=== PATIENT | male | born 1970 | race Caucasian/White ===

== ENCOUNTER 2019-10-15 16:53 | Emergency (ER) | payer OTHER, SELFPAY ==
[2019-10-15 17:01] VITALS: BP 158/90; PULSE 107; RESP 18; TEMP 37.3; O2SAT 98
--- NOTE | 2019-10-15 17:05 | ED.GENADULT ---
HPI - General Adult General Chief complaint: Extremity Problem,Nontraumatic Stated complaint: sore neck Time Seen by Provider: 10/15/19 17:05 Source: patient and RN notes reviewed Mode of arrival: ambulatory Limitations: no limitations History of Present Illness HPI narrative: This is a 48 years old male presents to the office for an evaluation of posterior neck/upper back pain four days ago. Pain abruptly started while he went to bed at night. Pain continues to get worse over time. Pain caused him to have a headache denies any other associated symptoms such as dizziness, lightheaded, visual change, or abdominal pain or vomiting.He tried ice and Tylenol for his symptoms. Denies recent trauma or injury. Denies heavy lifting. Denies insect bite/joints pain. Denies similar pain the past. Denies recent massage or chiropractor care. Related Data Home Medications Medication Instructions Recorded Confirmed atorvastatin 20 mg tablet 20 mg PO DAILY 07/25/19 10/15/19 lisinopril 20 mg tablet 20 mg PO DAILY 07/25/19 10/15/19 Allergies Allergy/AdvReac Type Severity Reaction Status Date / Time No Known Allergies Allergy Unverified 07/02/15 09:33 Review of Systems Review of Systems: Narrative: CONSTITUTIONAL: Denies fever or feeling ill EYES: Denies visual changes ENT: Denies congestion or sore throat CARDIOVASCULAR: Denies chest pain RESPIRATORY: Denies dyspnea,cough GASTROINTESTINAL: Denies abdominal pain, nausea, vomiting SKIN: Denies rash MUSCULOSKELETAL: Reports upper back and neck pain; pain is worse when any movement include moving his head, opening his mouth or lifting up his shirts. NEUROLOGIC: Denies lightheaded All other systems reviewed are negative, except as documented in HPI. [facility] Past Medical History Medical History (Updated 10/15/19 @ 17:23 by TANIA Avila) Abnormal fasting glucose Body mass index (bmi) 33.0-33.9, adult (11/07/18) Chronic anxiety Chronic low back pain with left-sided sciatica Encounter for prostate cancer screening Encounter for wellness examination in adult Essential (primary) hypertension Mixed hyperlipidemia Vitamin B12 deficiency anemia, unspecified Family History Family History Father Patient's father is , Onset Age: 65 Family history of primary malignant neoplasm of liver Social History Social History Smoking status: Light tobacco smoker Alcohol intake: current Comments At time of signature, I agree with nursing past medical, surgical, social and family history. There is no relevant family history pertinent to the presenting complaint. Exam Narrative: Exam Narrative: GENERAL: This is a well-nourished, well-developed patient, in no apparent distress. EYES: EMOI. Sclera clear/white. Vision is grossly intact. THROAT: Mucous membranes moist, posterior pharynx clear. NECK: Neck supple, non-tender without lymphadenopathy, masses or thyromegaly.No surface trauma, open wounds, soft tissue or muscle tenderness or spasm, trachea midline, nontender over larynx. CARDIOVASCULAR: Regular rate and rhythm without murmurs, gallops, or rubs. RESPIRATORY: Clear to auscultation. Breath sounds equal bilaterally. No wheezes, rales, or rhonchi. GASTROINTESTINAL: Abdomen soft, non-tender, nondistended. Bowel sounds are active. No hepato-splenomegaly, or palpable masses. No guarding. SKIN: warm, intact with no suspicious lesions or rash, good texture and turgor. NEURO: awake, alert, and oriented to person, place and time. There were no obvious focal neurologic abnormalities. Steady gait EXTREMITIES: Normal range of motion. BACK:Posterior neck: No bony tenderness, step-off or deformity to firm palpation at the posterior midline. Limited ROM secondary to pain. Trapezius muscle is very tense to palpation. Nontender without deformity or crepitance. No flank tenderness.
[2019-10-15] MEDS: KETOROLAC (*BKC) 60 MG/2 ML VIAL IM (17:22)
== END 2019-10-15 17:38 | disposition home or self-care (01) ==
PROVIDERS: Emergency Provider Nurse Practitioner; PCP Family Medicine
DX: M54.2 Cervicalgia (principal); F17.290 Nicotine dependence, other tobacco product, uncomplicated
CPT/HCPCS: 96372; 99213; G0463; J1885

== ENCOUNTER 2020-05-29 09:45 | Outpatient (RCR) | payer OTHER, SELFPAY ==
--- NOTE | 2020-04-16 09:26 | PTOPEVAL ---
Thank you for referring Silviano Elias to [facility] [place].? The patient is scheduled to be seen for therapy? 1 x/week for 4 weeks. Please review, sign, date and return this plan of care SHAINA. I agree with and certify that the following plan of care is medically necessary. Referring Physician Date Attending Provider: Prakash Luis MD *PT Outpatient Evaluation Start: 04/16/20 08:15 Freq: Status: Active Protocol: Document 04/16/20 08:17 CHELA (Rec: 04/16/20 09:07 CHELA [id number]) Therapy Assessment Status Assessment Status Assessment Status Evaluation Outpatient Past Medical History Past Medical History Source of Past Medical History Patient,Recalled from Previous Visit, Confirmed with Patient /Family Neurological History Hx Neurological Disorders No Significant History Cardiovascular History Hx Hypercholesterolemia Yes Hx Hypertension Yes Respiratory History Hx Respiratory Disorders No Significant History Gastrointestinal History Hx Gastrointestinal Disorders No Significant History Genitourinary History Hx Genitourinary Disorders No Significant History Musculoskeletal History Hx Arthritis Yes: left shoulder Hx Back Pain Yes Hematological History Hx Hematological Disorders No Significant History Endocrine History Hx Diabetes Yes: borderline HEENT History Hx HEENT Disorders No Significant History Psychosocial History Hx Anxiety Yes Evaluation Information Problem Diagnosis shoulder pain Onset Nichelle Cause throwing Additional Evaluation Detail Most of his work duties require sitting. 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 He felt Family pain after the incident. He was seen by the MD on 04/04/20 and received an injection. He has been fishing, playing sports and golf without increased pain or symptoms since the injections. He was initially having problems with reaching behind his back, but has improved since the injections. He sleeps on his stomach on his left arm, but has no pain since the injection. He does a running/walking prog
--- NOTE | 2020-05-20 10:52 | PCPTNOTE ---
Patient called & cancelled scheduled appointment for 05/21/20 due to having to work. Pt will call to reschedule.
--- NOTE | 2020-05-29 10:57 | PCPTNOTE ---
Admitting Provider: Attending Provider: Prakash uLis MD Patient:Silviano Elias Date of :1970 Discharge Note Patient has been seen for 4 therapy visits from 04/16/20 to 05/29/20 with 2 cancelled visits. He demonstrates normal shoulder range and strength without increased pain. No change in scapular stability strength noted. He continues to demonstrate poor scapular position in seated or standing position. He has been instructed in a HEP and demonstrates indep, but is not consistently performing the program at home. Quick Dash: 0% impaired. The goals have been partially met at this time. DC skilled therapy services at this time with pt having reached maximal potential with skilled therapy. Thank you for referring this patient to [facility]. Please review, sign, date and return this discharge summary SHAINA. I have been updated about the patient's current status and I agree with discharge from the above service at this time. Referring Physician Date
== END 2020-05-30 09:29 | disposition home or self-care (01) ==
LOC: ANHPT 09:45
PROVIDERS: PCP Family Medicine; Visit Provider Orthopaedic Surgery
DX: M25.512 Pain in left shoulder (principal); G89.29 Other chronic pain
CPT/HCPCS: 97110; 97112; 97140; 97161

== ENCOUNTER → 2022-01-26 14:49 | Outpatient (CLI) | payer OTHER, SELFPAY ==
--- NOTE | ~2022-01-26 | XR_ITS ---
EXAMINATION: XR lumbar spine min 4V DATE: 01/26/2022 15:07 INDICATION: Lumbago with sciatica, right side. TECHNIQUE: 5 views of lumbar spine were obtained. COMPARISON: None. FINDINGS: There is 7 degrees levocurvature of lumbar spine. There is 3 mm retrolisthesis of L3 on L4 and L4 on L5. Vertebral body heights are normal. There is mildly decreased disc height at L2-L3 and m oderately decreased disc height at L3-L4 and L4-L5, and L5-S1. There is multilevel mild facet joint o steoarthritis. IMPRESSION: 1. Moderate lumbar spondylosis. Reviewed, dictated and finalized at location B.
== END ==
PROVIDERS: PCP Family Medicine; Visit Provider Family Medicine
DX: M54.41 Lumbago with sciatica, right side (principal); G89.29 Other chronic pain; M47.896 Other spondylosis, lumbar region
CPT/HCPCS: 72110

== ENCOUNTER 2022-02-17 10:29 | Outpatient (CLI) | payer OTHER, SELFPAY ==
--- NOTE | 2022-02-17 10:38 | EST_ITS ---
Patient Info Name: Silviano Elias Age: 51 years : 1970 Gender: Male Ht: 65 in Wt: 205 lbs BSA: 2.10 m2 HR: 76 bpm BP: 131 / 75 mmHg Heart Rhythm: Sinus Rhythm Exam Date: 02/17/2022 11:13 AM Exam Location: [facility] Stress Patient Status: Outpatient Admit Date: 02/17/2022 Staff Ordering Physician: Jay Valle MD Attending Provider: Jay Valle MD Exercise Technologist: Mckenna Estevez CT Exercise Physician: Simone Rubio DO Exam Type: CA stress test treadmill Study Info Indications R07.9 - Chest pain, unspecified A treadmill exercise stress test was performed. Summary 1. 1. Negative Bony exercise stress test for ischemic ST changes by ECG criteria. 2. 2. Good functional capacity, achieving 10 METs of workload. 3. 3. Appropriate HR response to exercise. 4. 4. Appropriate HR recovery at 1 minute post exercise. 5. 5. No imaging with stress testing. 6. 6. Patient informed of the above results. Protocol: Bony Stress ECG Details Stage: REST Duration (min): 3 min : 38 sec Speed (mph): 0.0 Grade (%): 0 HR (bpm): 82 SBP (mmHg): 131 DBP (mmHg): 75 METS: --- Stage: REST Duration (min): 11 min : 50 sec Speed (mph): 0.0 Grade (%): 0 HR (bpm): 81 SBP (mmHg): 131 DBP (mmHg): 75 METS: --- Stage: STAGE 1 Duration (min): 1 min : 0 sec Speed (mph): 1.7 Grade (%): 10 HR (bpm): 101 SBP (mmHg): 131 DBP (mmHg): 75 METS: --- Stage: STAGE 1 Duration (min): 2 min : 0 sec Speed (mph): 1.7 Grade (%): 10 HR (bpm): 105 SBP (mmHg): 131 DBP (mmHg): 75 METS: --- Stage: STAGE 1 Duration (min): 3 min : 0 sec Speed (mph): 1.7 Grade (%): 10 HR (bpm): 105 SBP (mmHg): 135 DBP (mmHg): 85 METS: --- Stage: STAGE 2 Duration (min): 1 min : 0 sec Speed (mph): 2.5 Grade (%): 12 HR (bpm): 110 SBP (mmHg): 135 DBP (mmHg): 85 METS: --- Stage: STAGE 2 Duration (min): 2 min : 0 sec Speed (mph): 2.5 Grade (%): 12 HR (bpm): 123 SBP (mmHg): 155 DBP (mmHg): 88 METS: --- Stage: STAGE 2 Duration (min): 3 min : 0 sec Speed (mph): 2.5 Grade (%): 12 HR (bpm): 123 SBP (mmHg): 155 DBP (mmHg): 88 METS: --- Stage: STAGE 3 Duration (min): 1 min : 0 sec Speed (mph): 3.4 Grade (%): 14 HR (bpm): 134 SBP (mmHg): 155 DBP (mmHg): 88 METS: --- Stage: STAGE 3 Duration (min): 2 min : 0 sec Speed (mph): 3.4 Grade (%): 14 HR (bpm): 141 SBP (mmHg): 178 DBP (mmHg): 97 METS: --- Stage: STAGE 3 Duration (min): 3 min : 0 sec Speed (mph): 3.4 Grade (%): 14 HR (bpm): 148 SBP (mmHg): 179 DBP (mmHg): 94 METS: --- Stage: STAGE 4 Duration (min): 0 min : 18 sec Speed (mph): 4.2 Grade (%): 16 HR (bpm): 154 SBP (mmHg): 179 DBP (mmHg): 94 METS: ---
== END 2022-02-17 10:30 | disposition home or self-care (01) ==
LOC: ANHCARD 10:31
PROVIDERS: PCP Family Medicine; Visit Provider Family Medicine
DX: R07.89 Other chest pain (principal); I10 Essential (primary) hypertension; F17.209 Nicotine dependence, unspecified, with unspecified nicotine-induced disorders; E78.2 Mixed hyperlipidemia
CPT/HCPCS: 93017

== ENCOUNTER 2022-03-27 00:43 | Day surgery (SDC) | payer OTHER, SELFPAY ==
[2022-03-11 14:19] VITALS: BMI 31.4
[2022-03-27 09:16] VITALS: BP 128/83; PULSE 90; RESP 18; TEMP 36.4; O2SAT 96
[2022-03-27 09:32] LABS: Glucose Point of Care 95 mg/dl (65-105)
--- NOTE | 2022-03-27 09:45 | WPDANESEPPF ---
Anes - Initial Pre Proc Eval Procedure: Operation Date: 03/27/22 10:30 Proposed Procedures p Screening Colonoscopy - Star Johnson MD Date/Time: 03/27/22 09:45 Surgeon: Star Johnson MD Pre Op Diagnosis: neoplasm screening Patient Data Age: 51 Gender: M Height: 1.7 m Weight: 94.7 kg Last Vital Signs Temp 36.4 C 03/27/22 09:16 Pulse 90 03/27/22 09:16 Resp 18 03/27/22 09:16 BP 128/83 03/27/22 09:16 Pulse Ox 96 03/27/22 09:16 O2 Del Method Room Air 03/27/22 09:16 Allergies Allergy/AdvReac Type Severity Reaction Status Date / Time No Known Allergies Allergy Verified 03/27/22 09:15 Home Medications Medication Instructions Recorded Confirmed Type metformin 500 mg tablet,extended 500 mg PO DAILY #30 tabs 08/25/21 03/11/22 Rx release 24 hr lisinopril 20 mg tablet 20 mg PO DAILY #90 tabs 10/02/21 03/11/22 Rx atorvastatin 20 mg tablet 20 mg PO DAILY #30 tabs 01/02/22 03/11/22 Rx alprazolam 0.25 mg tablet 0.25 mg PO TID PRN anxiety #90 tabs 01/26/22 03/27/22 Rx sodium,potassium,mag sulfates 17.5 See Rx Instructions PO .COMPLEX 02/10/22 Rx gram-3.13 gram-1.6 gram oral soln #354 mL (Suprep Bowel Prep Kit) Laboratory Tests 03/27/22 09:29 POC Capillary Glucose 95 mg/dl mg/dl (65-105) Patient hx anesthesia problems: none Family hx anesthesia problems: none Results Review: All pre-operative results and documents have been reviewed as part of the pre-operative evaluation. [facility] Past Medical History Medical History Abnormal fasting glucose fasting glucose 99 with hemoglobin A1c 5.7 on 06/02/2021 Acute neck pain Atypical chest pain Exercise stress test on 02/17/2022 was negative for ischemia. BMI 31.0-31.9,adult BMI 32.0-32.9,adult Body mass index (bmi) 33.0-33.9, adult (11/07/18) Chronic anxiety Chronic left shoulder pain Chronic low back pain with left-sided sciatica Chronic low back pain with right-sided sciatica X-ray on 01/26/2022 with 7? of levoscoliosis, retrolisthesis 3 mm of L3 on L4 and L4 on L5. Mild degenerative disc disease at L2-L3 with moderate degenerative disc disease at L3-L4, L4-L5, and L5-S1 with neuroforaminal narrowing. Colon cancer screening COVID-19 Encounter for prostate cancer screening PSA normal at 0.8 on 06/02/2021 Encounter for wellness examination in adult Essential (primary) hypertension Hemoglobin A1c less than 7.0% 02/08/2020 A1c = 5.5 Hypersomnia Hypertension Microscopic hematuria Mixed hyperlipidemia cholesterol 166, HDL 31, triglycerides 77, LDL 120 on 06/02/2021 Obesity (BMI 30.0-34.9) Pre-diabetes Tobacco use disorder, continuous Vitamin B12 deficiency anemia B12 normal 499 on 06/02/2021 Vitamin B12 deficiency anemia, unspecified Family History Family History Father Patient's father is , Onset Age: 65 Family history of primary malignant neoplasm of liver Social History Social History Smoking status: Current some day smoker Tobacco type: cigarettes Alcohol intake: current Drinks per week: 12 Alcohol use details: beer Substance use: never Substance use type: does not use Living arrangements: with family 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
--- NOTE | 2022-03-27 09:54 | PM.HPGS ---
History of Present Illness History of Present Illness Consent: Risks, benefits, and alternatives have been discussed and questions answered. Patient agrees to proceed with procedure. Chief complaint: neoplasm screening Narrative: Silviano Elias is a 51 year old male Presents for screening colonoscopy. Patient's current weight appetite and bowel movements are normal. Patient denies abdominal pain. He has had no bleeding. Family history is noncontributory. Review of Systems Review of Systems: Review of systems noncontributory. [facility] Past Medical History Medical History Abnormal fasting glucose fasting glucose 99 with hemoglobin A1c 5.7 on 06/02/2021 Acute neck pain Atypical chest pain Exercise stress test on 02/17/2022 was negative for ischemia. BMI 31.0-31.9,adult BMI 32.0-32.9,adult Body mass index (bmi) 33.0-33.9, adult (11/07/18) Chronic anxiety Chronic left shoulder pain Chronic low back pain with left-sided sciatica Chronic low back pain with right-sided sciatica X-ray on 01/26/2022 with 7? of levoscoliosis, retrolisthesis 3 mm of L3 on L4 and L4 on L5. Mild degenerative disc disease at L2-L3 with moderate degenerative disc disease at L3-L4, L4-L5, and L5-S1 with neuroforaminal narrowing. Colon cancer screening COVID-19 Encounter for prostate cancer screening PSA normal at 0.8 on 06/02/2021 Encounter for wellness examination in adult Essential (primary) hypertension Hemoglobin A1c less than 7.0% 02/08/2020 A1c = 5.5 Hypersomnia Hypertension Microscopic hematuria Mixed hyperlipidemia cholesterol 166, HDL 31, triglycerides 77, LDL 120 on 06/02/2021 Obesity (BMI 30.0-34.9) Pre-diabetes Tobacco use disorder, continuous Vitamin B12 deficiency anemia B12 normal 499 on 06/02/2021 Vitamin B12 deficiency anemia, unspecified Family History Family History Father Patient's father is , Onset Age: 65 Family history of primary malignant neoplasm of liver Social History Social History Smoking status: Current some day smoker Tobacco type: cigarettes Alcohol intake: current Drinks per week: 12 Alcohol use details: beer Substance use: never Substance use type: does not use Living arrangements: with family 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, [employer] Gender identity (if verbalized by the patient): Male Spiritual care concerns: No Meds Home Medications and Allergies Home Medications Medication Instructions Recorded Confirmed Type metformin 500 mg tablet,extended 500 mg PO DAILY #30 tabs 08/25/21 03/11/22 Rx release 24 hr lisinopril 20 mg tablet 20 mg PO DAILY #90 tabs 10/02/21 03/11/22 Rx atorvastatin 20 mg tablet 20 mg PO DAILY #30 tabs 01/02/22 03/11/22 Rx alprazolam 0.25 mg tablet 0.25 mg PO TID PRN anxiety #90 tabs 01/26/22 03/27/22 Rx sodium,potassium,mag sulfates 17.5 See Rx Instructions PO .COMPLEX 02/10/22 Rx gram-3.13 gram-1.6 gram oral soln #354 mL (Suprep Bowel Prep Kit) Allergies Allergy/AdvReac Type Severity Reaction Status Date / Time No Known Allergies Allergy Verified 03/27/22 09:15 Vital Signs Vital Signs - 24 hr 03/27/22 09:16 Temperature 97.6 F Pulse Rate 90 Respiratory Rate 18 Blood Pressure 128/83 Pulse Oximetry 96 Oxygen Delivery Room Air Exam Narrative: Physical exam reveals patient to be alert. Vital signs stable. HEENT exam is unremarkable. Patient is anicteric. Lungs are clear to auscultation and percussion. Heart is without murmur or extra sounds. Abdomen bowel sounds are present soft nontender with no hepatosplenomegaly. Digital external rectal exam is normal. Assessment and Plan Assessment and plan (1) Colon cancer screening: Code(s): Z12.11 - Encounter for screening for malignant neoplasm of colon St
[2022-03-27] MEDS: LACTATED RINGERS 1,000 ML 150 ML IV CONT (10:46)
[2022-03-27 10:49] VITALS: BP 102/63; PULSE 86; RESP 20; O2SAT 95
[2022-03-27 10:59] VITALS: BP 129/91; PULSE 75; RESP 20; O2SAT 98
[2022-03-27 11:09] VITALS: BP 139/98; PULSE 79; RESP 22; O2SAT 99
== END 2022-03-27 11:26 | disposition home or self-care (01) ==
PROVIDERS: PCP Family Medicine; Visit Provider Internal Medicine Gastroenterology
PROC: 0DJD8ZZ Inspection of Lower Intestinal Tract, Via Natural or Artificial Opening Endoscopic (ICD-10-PCS; CPT 45378; principal; 2022-03-27 10:30)
DX: Z12.11 Encounter for screening for malignant neoplasm of colon (principal); D12.2 Benign neoplasm of ascending colon; K63.5 Polyp of colon; K64.8 Other hemorrhoids; I10 Essential (primary) hypertension; F41.9 Anxiety disorder, unspecified; E78.2 Mixed hyperlipidemia; D51.3 Other dietary vitamin B12 deficiency anemia; R73.03 Prediabetes; Z79.84 Long term (current) use of oral hypoglycemic drugs; E66.9 Obesity, unspecified; Z68.32 Body mass index [BMI] 32.0-32.9, adult; F17.210 Nicotine dependence, cigarettes, uncomplicated
CPT/HCPCS: 45385; 82948; 88305; J2704; J7120

== ENCOUNTER → 2024-05-30 13:19 | Outpatient (CLI) | payer OTHER, SELFPAY ==
--- NOTE | ~2024-05-30 | XR_ITS ---
HISTORY: M25.511 - Pain in right shoulder,no injury COMPARISON: None TECHNIQUE: 3 views of the right shoulder were performed FINDINGS: No acute fracture. The glenohumeral joint space is maintained. Degenerative disease is identified within the right acromioclavicular joint space with osteophyte for mation and joint space narrowing. The visualized portion of the adjacent right lung is clear. The humeral head is well seated within the glenoid fossa. IMPRESSION: Degenerative disease, without acute fracture or anterior dislocation. Reviewed, dictated and finalized at location A. DRY CLERK
--- NOTE | ~2024-05-30 | XR_ITS ---
Cervical Spine: AP, lateral, open-mouth views Clinical History: Pain Findings: The normal lordotic curve is maintained. No acute fracture seen. There is grade 1 retrolist hesis of C3 over C4. There is moderate to advanced degenerative disc narrowing at C3-C4, C5-C6, and C 6-C7. There are mild facet joint degenerative changes in the cervical spine. Pre-vertebral soft tissu es are unremarkable. Impression: Moderate to advanced degenerative spondylosis overall, as detailed above. Grade 1 retrolisthesis of C3 over C4. Reviewed, dictated and finalized at location M. RUMENT MAKER Impression: Moderate to advanced degenerative spondylosis overall, as detailed above. Grade 1 retrolisthesis of C3 over C4.
--- OUTSIDE RECORDS SUMMARY | 2024-05-30 13:30 | XMS_ITS | Referral Summary ---
Author Organization [facility] [place] [address] Address [address] [place] [id number] Care Team Providers Care Pest Control Chemical Technician Name Role Phone Jay Valle MD Primary Care Provider [phone] Allergies No known active allergies Medications lisinopriL (PRINIVIL,ZESTR IL) 20 mg tablet Take 20 mg by mouth daily 06/27/2021 Active metFORMIN XR (GLUCOPHAGE XR) 500 mg 24 hr tablet Take 500 mg by mouth daily 05/20/2021 Active atorvastatin (LIPITOR) 20 mg tablet Take 20 mg by mouth daily 06/26/2021 Active ALPRAZolam (XANAX) 0.25 mg tablet TAKE 1 TABLET BY MOUTH THREE TIMES A DAY NEEDED FOR ANXIETY 05/23/2021 Active Active Problems No known active problems Social History Tobacco Use Types Packs/Day Years Used Date Smoking Tobacco: Some Days Personal Safety Answer Date Recorded Getting School Help Needed Not on file 06/19 Sex and Gender Information Value Date Recorded Sex Assigned at Not on file 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 Gender Identity Not on file Sexual Orientation Not on file Last Filed Vital Signs Vital Sign Reading Time Taken Comments Blood Pressure 130/86 08/06/2021 8:12 AM CDT Pulse 94 08/06/2021 8:12 AM CDT Temperature 37.1 ??C (98.7 ??F) 08/06/2021 8:12 AM CD T Respiratory Rate 16 08/06/2021 8:12 AM CDT Oxygen Saturation 98% 08/06/2021 8:12 AM CDT Inhaled Oxygen Concentration - - Weight 94.3 kg (208 lb) 08/06/2021 8:12 AM CDT Height 170.2 cm (5' 7 ) 08/06/2021 8:12 AM CDT Body Mass Index 32.58 08/06/2021 8:12 AM CDT Plan of Treatment Not on file Insurance [facility] NAP Care Teams Pest Control Chemical Technician Relationship Specialty Start Date End Date Jay Valle MD [address] [address] PCP - General Family Medicine 08/06/21
--- OUTSIDE RECORDS SUMMARY | 2024-05-30 13:30 | XMS_ITS | Clinical Summary ---
Author Organization [facility] [place] [address] Address [address] [place] [id number] Care Team Providers Care Wrapping Machine Helper Name Role Phone Jay Valle MD Primary Care Provider [phone] Allergies No known active allergies Medications lisinopriL [...] Active Active Problems No known active problems Medical History Medical History Date Comments Hypertension Anxiety Hyperlipidemia Social History Tobacco Use Types Packs/Day Years Used Date Smoking Tobacco: Some Days Personal Safety Answer Date Recorded Getting School Help Needed Not on file 06/19 Sex and Gender Information Value Date Recorded Sex Assigned at Not on file 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 Gender Identity Not on file Sexual Orientation Not on file Obstetrics History Last Filed Vital Signs Vital Sign Reading [...] 08/06/2021 8:12 AM CDT Plan of Treatment Health Maintenance Due Date Last Done Comments Colon Cancer Screening-Colonoscopy 1970 Depression Screening 1970 Hepatitis C Screening 1970 Prostate Cancer Screening-PSA 1970 Pneumococcal vaccine <65 (1 of 2 - PCV) 10/22/1977 Hepatitis B Screening 10/22/1989 Regular Well Visit/Exam 18-64 10/22/1989 Zoster Vaccine (1 of 2) 10/22/2021 Influenza Vaccine (#1) 2023 DTaP/Tdap/Td Vaccine (2 - Td or Tdap) 10/12/2027 Insurance [facility] NAP Care Teams Wrapping Machine Helper Relationship Specialty Start Date End Date Jay Valle MD [address] [address] PCP - General Family Medicine 08/06/21
== END ==
LOC: EXPTRAD 13:21
PROVIDERS: PCP Nurse Practitioner Family; Visit Provider Nurse Practitioner Family
DX: M19.011 Primary osteoarthritis, right shoulder (principal); M47.892 Other spondylosis, cervical region
CPT/HCPCS: 72040; 73030

== ENCOUNTER 2025-01-09 08:50 | Outpatient (CLI) | payer OTHER, SELFPAY ==
--- NOTE | 2025-01-30 15:54 | WPDHOMESLEEP ---
Sleep Study - Home Unattended Date of Study: 01/09/25 Ordering Provider: Jay Valle MD Interpreting Provider: Octavia Núñez, DO Home Sleep Study Type: Watch PAT Height: 1.7 m Weight: 90.718 kg Body Mass Index: 31.3 Neck Circumference (inches): 18 [place]: 2 Reason for Sleep Study Excessive daytime sleepiness, difficulty falling and staying asleep Sleep History The patient is a 54-year-old male that had a sleep study ordered by his primary care physician for evaluation of sleep apnea. He admits to excessive daytime sleepiness, trouble falling asleep and trouble staying asleep. He denies snoring loudly. He denies interruptions in breathing while asleep. He denies choking or gasping at night. He denies having trouble breathing on his back. He denies morning headaches. He denies having a dry or sore mouth / throat in the morning. He denies nocturnal heartburn. He denies nocturia. He does have difficulty returning to sleep if he wakes up throughout the night. He denies any hypnotic or sedative use. He does feel anxious about sleep. He does feel tired or sleepy during the day. He does feel tired in the morning. He does have the urge to fall asleep during the day. He denies feeling drowsy while driving. He denies sleep paralysis, cataplexy and hypnagogic/ hypnopompic hallucinations. He does clench or grind his teeth. He does kick or jerk is legs excessively. He does have a restless feeling in his legs but it does not cause an urge to move his legs. It gets worse with rest but does not improve with activity. It is worse in the evening or nighttime but does not cause a disturbance in his sleep. He goes to bed at 10:00 p.m. on work days and 11:00 p.m. on his days off. It takes him 2 hours to fall asleep work days and 1 hour on his days off. He gets 3 hours of sleep on work days and 4 hours on his days off. His sleep is a little more restorative on days off. He does take a planned naps that is less than an hour. The nap is not restorative. He denies dream enactment behavior. He denies sleep walking. He consumes 1-2 cups of caffeinated beverage per day. He consumes more than 3 alcoholic beverages 1-2 nights per week. He smokes less than 5 cigarettes per day. He does exercise 1-2 nights per week. [facility] Past Medical History Medical History Thyroid nodule incidentally noted on imaging study (12/20/24) multiple small nodules of the thyroid on CT of the C-spine 12/20/2024. Dizziness Right shoulder pain Chronic neck pain (~10/15/21) x-ray of the C-spine on 05/30/2024 with moderate to severe degenerative disc disease at C3-C4, C5-C6, C6-C7. CT of the C-spine on 12/20/2024 with diffuse degenerative disc disease with mild spinal stenosis at C3-C4 with severe neural foraminal stenosis on the right at this level and mild stenosis on the left. BMI 34.0-34.9,adult Insomnia when sleeping during day with shift work Shift work sleep disorder changes 12 hour shift every 2 weeks Hyperkalemia (08/17/22) potassium slightly elevated at 5.3 on 08/17/2022. potassium normal at 5.2 on 10/14/2022. Potassium normal at 4.3 on 06/19/2023. Upper respiratory infection Acute otitis media Polyp of colon 2 colon polyps on 1st screening colonoscopy 03/27/2022 with tubular adenoma, recheck 5 years.. Colon cancer screening BMI 32.0-32.9,adult Obesity (BMI 30.0-34.9) Atypical chest pain Exercise stress test on 02/17/2022 was negative for ischemia. Hypersomnia Chronic low back pain with right-sided sciatica X-ray on 01/26/2022 with 7? of levoscoliosis, retrolisthesis 3 mm of L3 on L4 and L4 on L5. Mild degenerative disc disease at L2-L3 with moderate degenerative disc disease at L3-L4, L4-L5, and L5-S1 with neuroforaminal narrowing. CT lumbar spine 12/20/2024 with severe neural foraminal stenosis on the right at L3-L4 and on the left at L4-L5 and the L5-S1 with moderate central canal stenosis at L3-L4 and L4-L5. Pre-diabetes Microscopic hematuria Urinalysis normal on 08/17/2022. Trace blood on urinalysis 06/19/2023. Normal urinalysis 09/21/2024. COVID-19 Hemoglobin A1c less than 7.0% 02/08/2020 A1c = 5.5 Hypertension BMI 31.0-31.9,adult Tobacco use disorder, continuous occasional cigarette with alcohol Vitamin B12 deficiency anemia B12 normal 499 on 06/02/2021. Level normal at 433 on 08/17/2022. Level low at 344 with goal greater than 400 with hemoglobin 14.4 on 06/19/2023. Level low at 284 with goal greater than 400 and hemoglobin 15.6 on 09/21/2024. Chronic left shoulder pain Acute neck pain Chronic low back pain with left-sided sciatica Encounter for wellness examination in adult Encounter for prostate cancer screening PSA normal at 0.8 on 06/02/2021. PSA 0.6 on 08/17/2022. PSA normal at 0.6 on 06/19/2023. PSA 0.87 on 09/21/2024. Abnormal fasting glucose fasting glucose 99 with hemoglobin A1c 5.7 on 06/02/2021. Fasting glucose 91 on 08/17/2022. Fasting glucose 102 with hemoglobin A1c 5.4 on 06/19/2023. Glucose 92, hemoglobin A1c 5.5 with microalbumin negative with the GFR 109 on 09/21/2024. Vitamin B12 deficiency anemia, unspecified Body mass index (bmi) 33.0-33.9, adult (11/07/18) Chronic anxiety Essential (primary) hypertension Mixed hyperlipidemia cholesterol 166, HDL 31, triglycerides 77, LDL 120 on 06/02/2021. Cholesterol 157, triglycerides 119, HDL 35, LDL 100 on 08/17/2022. Cholesterol 157, triglycerides 118, HDL low at 33, LDL 119 on 06/19/2023. Cholesterol 167, triglycerides 77, HDL 34, LDL 116 with ratio 4.9 on 09/21/2024. Family History Family History Father Patient's father is , Onset Age: 65 Family history of primary malignant neoplasm of liver Social History Social History Smoking packs per day: 0.1 Smoking cigarettes per day: 2.0 Smoking status: Light tobacco smoker Tobacco type: cigarettes Alcohol intake: current Drinks per week: 12 Alcohol use details: beer Substance use: never Substance use type: does not use Do You Feel Safe in your Home?: Yes Lack of Transportation: No Lack of Food: Never True Current Housing: I Have Housing Concerned About Future Housing: No Difficulty Paying Gas/Electric Bills: No Difficulty Paying for Meds: Decline to Answer Currently Unemployed: No Education: Associate Degree Difficulty w/ Childcare or Family Care: No Living arrangements: with family Occupation/Education: occupation 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 [employer] Gender identity (if verbalized by the patient): Male Spiritual care concerns: No Medications Home Medications ?Medication ?Instructions ?Recorded ?Confirmed ?Type metformin 500 mg tablet,extended 500 mg PO DAILY #30 tabs 06/28/24 12/04/24 Rx release 24 hr atorvastatin 40 mg tablet 40 mg PO QHS #30 tabs 09/19/24 12/04/24 Rx alprazolam 0.5 mg tablet 0.25 mg (1/2 x 0.5 mg) PO TID PRN 11/27/24 12/04/24 Rx anxiety #45 tabs duloxetine 30 mg capsule,delayed 30 mg PO DAILY #30 caps 12/04/24 12/04/24 Rx release meloxicam 15 mg tablet 15 mg PO DAILY PRN pain #30 tabs 12/04/24 12/04/24 Rx semaglutide (weight loss) 2.4 2.4 mg subcut WEEKLY 12/04/24 12/04/24 History mg/0.75 mL subcutaneous pen injector (Wegovy) lisinopril 20 mg tablet 20 mg PO DAILY #90 tabs 12/13/24 Rx Sleep Procedure The sleep study was completed using LookFlowT a technically adequate device with seven channels: peripheral arterial tone, actigraphy, body position, snore, respiratory movement, pulse oximetry, sleep staging, and heart rate. Prior to using the device, the patient received verbal and written instructions for its application and was provided with the [employer] desk phone number for additional telephonic instruction with 24-hour availability of qualified personnel to answer questions. The study was scored using CMS guidelines. Sleep Architecture The total recording time is 6 hrs, 17 min. The total sleep time is 4 hrs, 52 min. Sleep latency is 17 minutes. REM latency is 141 minutes. The patient had 9 episodes of waking. Sleep architecture shows 0.9% deep sleep, 87.2% light sleep, and (as % Total Sleep Time) showed NREM (Light 87.2%; Deep 0.9%), and a 12.0% stage REM. The patient spent 0.0% of total sleep time in the supine position. Sleep efficiency was 77.45. Respiratory Analysis The overall AHI (pAHI 4%:) is 5.7. The overall AHI (pAHI 3%:) is 8.0. The central AHI is 3.2. The AHI was 5.7 in NREM and 24.6 in REM sleep. The AHI was N/A in Supine and 8.0 in Non-supine sleep. Percent of Murtaza Garcia respirations is 0.0. Oximetry Data The oxygen desaturation index (YUMIKO 4%:) is 1.9. The mean saturation is 94%, and the lowest saturation is 90%. Time spent with saturation < 88% is 0.0 minutes. Snoring Profile Snoring average intensity is 41 dB. The patient snored above 45 decibels for 9.2 minutes, 3.1% of sleep time. Cardiac Profile The average pulse rate is 67 beats per minutes. The lowest pulse rate is 43 bpm. The highest pulse rate reported is 102 bpm. Atrial fibrillation was not detected. Premature beats occur 1.2 per minute. Assessment and Plan Assessment and Plan (1) ELIJAH (obstructive sleep apnea): Code(s): G47.33 - Obstructive sleep apnea (adult) (pediatric) Status: Acute Assessment and Plan: The patient had an overall AHI of 5.7 with desaturation down to 90%. This is consistent with mild sleep apnea. Due to the patient's hypertension, he qualifies for treatment. I recommend that the patient be prescribed AutoPAP 5-15 cm H2O, CPAP mask/filters/tubing and heated humidity. A mandibular advancement device is also an acceptable treatment option. This should be used with all episodes of sleep.? Compliance should be reviewed within 31-90 days of starting therapy for usage greater than 4 hours per night greater than 70% of the nights. The patient should be asked about symptoms such as?excessive daytime sleepiness, quality of sleep, decreased nocturia, increased?mental functioning such as memory, mood, and concentration. The patient's sleep history is somewhat suggestive of Restless Leg Syndrome. I recommend that the patient have a serum ferritin drawn for evaluation of iron deficiency anemia. If the patient has a serum ferritin less than 75 ng/mL, I recommend starting a daily iron supplement and a Vitamin C supplement for better absorption. If the serum ferritin is greater than 75 ng/mL, I recommend starting a dopamine agonist and titrating the dose until symptoms resolve. There are nonpharmacological methods to treat limb movements including daily exercise, stretching calf muscles before bed, avoiding excessive amounts of caffeine and alcohol, vitamin B supplementation, magnesium lotion massaged into legs before bed, and use of a weighted blanket. Data The data obtained during this sleep study is adequate for interpretation. Certification This sleep study has been reviewed by a board certified sleep medicine physician.
[2025-01-31 12:44] VITALS: BMI 31.3
== END 2025-01-15 09:17 | disposition home or self-care (01) ==
PROVIDERS: PCP Family Medicine; Visit Provider Family Medicine
DX: G47.10 Hypersomnia, unspecified (principal); G47.00 Insomnia, unspecified; G47.26 Circadian rhythm sleep disorder, shift work type; G47.33 Obstructive sleep apnea (adult) (pediatric)
CPT/HCPCS: 95800

== ENCOUNTER 2025-04-16 11:08 | Day surgery (SDC) | payer OTHER, SELFPAY ==
--- NOTE | ~2025-04-16 | XR_ITS ---
XR fluoroscopy no charge 04/16/2025 12:14 Indication:Bilateral C2, C3 and C4 medial branch block TECHNIQUE: Fluoroscopy used during Bilateral C2, C3 and C4 medial branch block performed by [Isaias Bryson MD] on 04/16/2025. 105 seconds of fluoroscopy with 10 fluoroscopic images captured. FINDINGS: Correlate with procedure note. IMPRESSION: Fluoroscopy used during Bilateral C2, C3 and C4 medial branch block. Reviewed, dictated and finalized at location O. BOILER IMPRESSION: Fluoroscopy used during Bilateral C2, C3 and C4 medial branch block .
--- NOTE | 2025-04-16 11:11 | WPDHPUPDATE1 ---
History and Physical Update Update Date/Time: 04/16/25 11:11 History and Physical has been reviewed, including an updated exam of the patient. There are NO changes in the patient's condition. Risks, benefits, and alternatives have been discussed and questions answered. Patient agrees to proceed with procedure.
--- NOTE | 2025-04-16 11:12 | P.OP_ITS ---
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 Surgeon Isaias Bryson MD Food Service Ambassador None. Anesthesia Local Description of Procedure INFORMED CONSENT: Risks, benefits and alternatives to the procedure were discussed in detail with the patient who expressed explicit understanding and consent to proceed. Patient was informed verbally and in written form regarding the risks associated with the procedure including the low risk of serious infection, bleeding/bruising, allergic reaction, nerve or organ injury, paralysis, procedural site pain or discomfort, worsening pain and/or mobility, failure to treat and/or disfigurement. The patient expressed explicit understanding and consent to proceed. All materials required for the procedure were available prior to procedure start. Site and side was marked prior to procedure and confirmed in the presence of the patient. PROCEDURE IN DETAIL: The patient was brought to the procedural suite and placed in the left lateral decubitus position with head stabilized. Patient was made comfortable with use of pillows under the head and between the knees and ankles. Skin overlying the injection site on the affected side was prepared broadly with tinted 3ml ChloraPrep applicator and draped in a sterile manner. Aseptic technique was used throughout. The endplates of the vertebral bodies at the site(s) of interest were aligned in the lateral fluoroscopic view relative to the patient. Image was optimized for visualization of the pars interarticularis at each target site. Local anesthesia was established by infiltration with approximately 5 mL of 1% lidocaine via a 1-1/2 inch 27- gauge needle. A 25-gauge 3.5 inch Quincke spinal needle was advanced until the needle tip contacted the periosteum of the pars interarticularis at the target site, the right C2-3 medial branch. AP view was utilized to confirm the appropriate placement of the needle tip just lateral to the periosteum at the center point of the pars interarticularis. In the lateral view, 0.25 mL of Omnipaque 300 contrast medium was injected after negative aspiration for CSF, blood or other bodily fluid, showing appropriate extra-articular spread of contrast without evidence of intravascular, foraminal or intrathecal placement. A 0.25 mL solution of 0.5% PF bupivacaine was injected after negative repeat aspiration. Appropriate spread of the injectate was confirmed with washout of previously injected contrast. No parasthesias were elicited. Needle was removed completely intact without difficulty. The same procedure was repeated for all additional intended levels/structures treated on the ipsilateral side, the right C3, C4 medial branches with identical methodology modified to compensate for different location, with similar results and no evidence of complication. The same procedure was then repeated for all additional intended levels/structures treated on the contralateral side, the left C2-3, C3, C4 medial branches, with identical methodology and positioning modified to compensate for the contralateral location, with similar results and no evidence of complication. Images were saved and documented in the patient chart. Patient's skin was cleaned and sterile bandage applied. The patient tolerated the procedure well. The patient was transported to the recovery area in stable condition where they were observed for an appropriate amount of time prior to discharge, without evidence of complication. Patient was instructed on the appropriate completion of a pain diary over the next 12-24 hours. The patient was instructed to avoid excessive activity for the next 48 hours, including climbing and frequent use of stairs. Showers only for 48 hours. They were instructed not to drive or operate heavy machinery for 24 hours. They are to monitor for severe headaches, fevers, chills, night sweats, erythema/swelling at the site or any other signs of infection, bleeding/bruising, bowel or bladder changes as well as new pain, weakness or numbness in the upper or lower extremity. Should they notice these changes, they are instructed to call our office immediately or report directly to the nearest Emergency Department if no answer or if after posted office hours. COMPLICATIONS: None. COMMENTS: None. CONTRAST WASTED: 29.25mL Omnipaque 300. Complications No immediate complications Condition Stable Disposition Same day [facility] Billing Surgery - Charge Forward: Surgery Billing
[2025-04-16 11:36] VITALS: BP 130/97; PULSE 115; RESP 20; TEMP 37.4; O2SAT 98
[2025-04-16 11:47] VITALS: BP 115/62; PULSE 109; RESP 23; O2SAT 94
[2025-04-16] MEDS: BUPivacaine HCL 0.5% 10 ML AMP INFILTRATE (11:50)
[2025-04-16] MEDS: LIDOCAINE 1% PF INJ 5 ML VIAL INFILTRATE (11:50)
[2025-04-16 11:52] VITALS: BP 108/54; PULSE 102; RESP 21; O2SAT 94
[2025-04-16 11:57] VITALS: BP 125/84; PULSE 103; RESP 12; O2SAT 94
[2025-04-16 12:02] VITALS: BP 122/84; PULSE 99; RESP 17; O2SAT 95
--- OUTSIDE RECORDS SUMMARY | 2025-04-16 13:08 | XMS_ITS | Clinical Summary ---
Author Organization [facility] [place] [address] Address [address] [place] [id number] Care Team Providers Care Strike Out Machine Operator Name Role Phone Jay Valle MD Primary Care Provider [phone] Allergies No known active allergies Medications lisinopriL [...] on file Legal Sex Male 9:51 AM [employer] Gender Identity Not on file Sexual Orientation Not on file Last Filed Vital Signs Vital Sign Reading Time Taken Comments Blood Pressure 130/86 08/06/2021 8:12 AM CDT Pulse 94 08/06/2021 8:12 AM CDT Temperature 37.1 C (98.7 F) 08/06/2021 8:12 AM CDT Respiratory Rate 16 08/06/2021 8:12 AM CDT Oxygen Saturation 98% 08/06/2021 8:12 AM CDT Inhaled Oxygen Concentration - - Weight 94.3 kg (208 lb) 08/06/2021 8:12 AM CDT Height 170.2 cm (5' 7) 08/06/2021 8:12 AM CDT Body Mass Index 32.58 08/06/2021 8:12 AM CDT Plan of Treatment Not on file Insurance [facility] NAP Care Teams Strike Out Machine Operator Relationship Specialty Start Date End Date Jay Valle MD [address] [address] PCP - General Family Medicine 08/06/21
== END 2025-04-16 12:23 | disposition home or self-care (01) ==
LOC: ASC 11:15
PROVIDERS: PCP Family Medicine; Visit Provider Anesthesiology Pain Medicine
PROC: (CPT 64490; principal; 2025-04-16 12:25)
DX: M47.12 Other spondylosis with myelopathy, cervical region (principal)
CPT/HCPCS: 64490 ×2; 64491 ×2; 64492 ×2; 99199